=== PATIENT | male | born 1965 | race Caucasian/White ===

== ENCOUNTER 2023-09-19 09:57 | Outpatient (REF) | payer MEDICAID, SELFPAY ==
[2023-09-19 16:26] LABS: Hemoglobin A1C 10.7 % (<5.7)
[2023-09-19 16:43] LABS: ALT 38 U/L (16-63); AST 20 U/L (15-37); Albumin 4.1 g/dL (3.4-5.0); Alkaline Phosphatase 112 U/L (46-116); Anion Gap 7.3 mmol/L (3-11); BUN 12 mg/dL (7-18); Bilirubin, Total 0.5 mg/dL (0.2-1.0); CO2 26.7 mmol/L (21.0-32.0); CREATININE 0.9 mg/dL (0.70-1.30); Calculated LDL 111 mg/dL (<100); Chloride 102 mmol/L (98-107); Cholesterol 196 mg/dL (<200); Estimated GFR 97.78 (mL/min/1.73m2); Glucose 270 mg/dL (74-106); HDL Cholesterol 49 mg/dL (40-60); Potassium 4.4 mmol/L (3.5-5.1); Sodium 136 mmol/L (136-145); Total Protein 7.4 g/dL (6.4-8.2); Triglyceride 182 mg/dL (<150)
[2023-09-19 16:58] LABS: Calcium 8.7 mg/dL (8.5-10.1)
[2023-09-19 17:32] LABS: COMMENT (LAB VIEW ONLY) 62.58 mg/dL; Microalb ug/mg Crea 6.2 ug/mg Cr
== END 2023-09-19 09:58 | disposition home or self-care (01) ==
LOC: NCHCN 09:57
PROVIDERS: PCP Family Medicine; Visit Provider Family Medicine
DX: E11.9 Type 2 diabetes mellitus without complications (principal)
CPT/HCPCS: 80053; 80061; 82043; 82570; 83036

== ENCOUNTER 2024-08-29 08:51 | Outpatient (REF) | payer MEDICAID, SELFPAY ==
[2024-08-29 16:22] LABS: COMMENT (LAB VIEW ONLY) 137.99 mg/dL
== END 2024-08-29 08:52 | disposition home or self-care (01) ==
LOC: NCHCN 08:51
PROVIDERS: PCP Family Medicine; Visit Provider Family Medicine
DX: E11.9 Type 2 diabetes mellitus without complications (principal)
CPT/HCPCS: 82043; 82570

== ENCOUNTER 2025-05-22 11:06 | Outpatient (REF) | payer MEDICAID, SELFPAY ==
[2025-05-22 17:39] LABS: ALT 41 U/L (10-49); AST 40 U/L (<34); Albumin 4.6 g/dL (3.2-5.0); Alkaline Phosphatase 96 U/L (46-116); Anion Gap 9.5 mmol/L (3-11); BUN 20 mg/dL (9-23); Bilirubin, Total 0.5 mg/dL (0.2-1.2); CO2 26.5 mmol/L (20.0-31.0); Calcium 9.6 mg/dL (8.3-10.6); Chloride 110 mmol/L (98-107); Glucose 105 mg/dL (74-106); Potassium 3.8 mmol/L (3.5-5.1); Sodium 146 mmol/L (136-145); Total Protein 7.2 g/dL (5.7-8.2)
[2025-05-23 09:02] LABS: PSA, Diagnostic 1.2 ng/mL (<=4.5)
== END 2025-05-22 11:07 | disposition home or self-care (01) ==
LOC: NCHCN 11:06
PROVIDERS: PCP Family Medicine; Visit Provider Family Medicine
DX: R35.1 Nocturia (principal); E11.9 Type 2 diabetes mellitus without complications
CPT/HCPCS: 80053; 84153; 84154